=== PATIENT | female | born 1995 | race African-American/Black ===

== ENCOUNTER 2020-03-19 09:47 | Emergency (ER) | payer OTHER ==
[~2020-03-19] VITALS: Ht 175.3 cm; Wt 64.4 kg
--- NOTE | 2020-03-19 10:06 | NUR ---
Patient is AOx4, admits to recent admission at [facility] and [facility]. Patient is now requesting prescription for her home medicines and food. 2 sandwiches and juices provided per patient's request.
--- NOTE | 2020-03-19 10:27 | NUR ---
PT REFUSED ALL RESOURCES OFFERED TO HER BY DR HAINES, AND REFUSED SENIOR CARE PLACEMENT. PT WAS PROVIDED WITH FOOD, CLOTHES AND BUS CARD. PT WAS D/C'd FROM [facility]. D/C ISTRUCTIONS GIVEN TO THE PT BY DR HAINES.
[2020-03-19 10:39] VITALS: BP 132/69
== END 2020-03-19 10:39 | disposition home or self-care (01) ==
LOC: ER 09:56
DX: Z76.0 Encounter for issue of repeat prescription (principal); F20.9 Schizophrenia, unspecified; Z59.0 Homelessness
CPT/HCPCS: A4663